=== PATIENT | male | born 1940 | race Caucasian/White ===

== ENCOUNTER 2018-08-13 07:45 | Observation (INO) | payer MEDICARE ==
[~2018-08-13] VITALS: Ht 182.9 cm; Wt 81.9 kg
[2018-08-13] MEDS ORDERED: RIVA20TA PO (08:17)
[2018-08-13] MEDS ORDERED: HYDROmorphone 2 MG/ML, 1ML ONE (08:47)
[2018-08-13 08:58] LABS: BASOPHILS # (AUTO) 0.01 x10^3/uL (0-0.1); BASOPHILS % (AUTO) 0 % (0-1); EOSINOPHILS # (AUTO) 0.05 x10^3/uL (0-0.4); EOSINOPHILS % (AUTO) 1 % (1-7); LYMPHOCYTES # (AUTO) 1.01 x10^3/uL (1-3.4); LYMPHOCYTES % (AUTO) 15 % (22-44); MD NO; MEAN CORPUSCULAR HEMOGLOBIN 31.6 pg (27.5-34.5); MEAN CORPUSCULAR HGB CONC 33.3 g/dL (33.2-36.2); MEAN CORPUSCULAR VOLUME 94.9 fL (81-97); MEAN PLATELET VOLUME 8.5 fL (7.4-10.4); MONOCYTES # (AUTO) 0.41 x10^3/uL (0.2-0.8); MONOCYTES % (AUTO) 6 % (2-9); NEUTROPHILS # (AUTO) 5.26 x10^3/uL (1.8-6.8); NEUTROPHILS % (AUTO) 78 % (42-75); PLATELET COUNT 247 x10^3/uL (130-400); RED BLOOD COUNT 5.27 x10^6/uL (4.38-5.82); RED CELL DISTRIBUTION WIDTH 14.7 % (9.4-14.8)
[2018-08-13] MEDS ORDERED: HYDROmorphone 1 MG/ML, 1ML IM ONE (09:00)
[2018-08-13 09:01] LABS: ALANINE AMINOTRANSFERASE 39 U/L (12-78); ANION GAP 10 mmol/L (5-15); CALCIUM 8.7 mg/dL (8.5-10.1); CHLORIDE 109 mmol/L (98-107); CREATININE 1.13 mg/dL (0.7-1.3)
[2018-08-13 09:03] LABS: ALKALINE PHOSPHATASE 89 U/L (45-117); BILIRUBIN,TOTAL 1.8 mg/dL (0.2-1.0); TOTAL PROTEIN 7.4 g/dL (6.4-8.2)
[2018-08-13] MEDS ORDERED: ASPIRIN 81 MG TABLET CHEW PO ONE (10:00)
[2018-08-13] MEDS ORDERED: SODIUM CHLORIDE FLUSH 10ML SYR IVF ONE (10:00)
[2018-08-13] MEDS ORDERED: ASPIRIN 81 MG TABLET CHEW ONE (10:03)
[2018-08-13] MEDS ORDERED: METO25TA35 PO (10:19)
[2018-08-13] MEDS ORDERED: SODIUM CHLORIDE FLUSH 10ML SYR IVF PRN (11:00)
[2018-08-13 11:11] LABS: CULTURE INDICATED? NO; MICROSCOPIC AUTO
[2018-08-13 11:28] VITALS: BP 159/94
[2018-08-13] MEDS ORDERED: morphine SULFATE 10 MG/ML, 1ML IVPush PRN (11:30)
[2018-08-13] MEDS ORDERED: KETOROLAC 30 MG/1 ML IV PRN (11:30)
[2018-08-13] MEDS ORDERED: ACETAMINOPHEN 325 MG TABLET PO PRN (11:30)
[2018-08-13] MEDS: SODIUM CHLORIDE 0.9% 1,000 ML IV SCH ×2 (12:06→20:08)
[2018-08-13] MEDS: TAMSULOSIN 0.4 MG CAP.ER.24H PO SCH (12:06)
[2018-08-13 12:48] VITALS: BP 150/83
[2018-08-13 12:57] LABS: CHOL/HDL RATIO 2.7; CHOLESTEROL, TOTAL 149 mg/dL (140-239); HDL CHOL % 37 % (26-37); HDL CHOLESTEROL (DIRECT) 55 mg/dL (40-60); LDL CHOLESTEROL,CALCULATED 87 mg/dL (54-169); LDL/HDL RATIO 1.6 (0.5-3.0); TRIGLYCERIDES 35 mg/dL (50-200); TROPONIN I 0.138 ng/mL (0.000-0.045); VLDL CHOLESTEROL 7 mg/dL (0-25)
[2018-08-13 15:17] LABS: TROPONIN I 0.147 ng/mL (0.000-0.045)
[2018-08-13] MEDS ORDERED: RIVAROXABAN 20 MG TABLET PO SCH (17:00)
[2018-08-13 17:31] LABS: TROPONIN I 0.131 ng/mL (0.000-0.045)
[2018-08-13 19:49] VITALS: BP 140/86
[2018-08-13] MEDS: METOPROLOL TARTRATE 25 MG TABLET PO SCH (20:07)
[2018-08-14 02:16] VITALS: BP 109/61
[2018-08-14 05:11] LABS: ANION GAP 7 mmol/L (5-15); CALCIUM 8.3 mg/dL (8.5-10.1); CHLORIDE 110 mmol/L (98-107); CREATININE 0.93 mg/dL (0.7-1.3)
[2018-08-14 06:43] VITALS: BP 139/94
[2018-08-14] MEDS: SODIUM CHLORIDE 0.9% 1,000 ML IV SCH (08:09)
[2018-08-14] MEDS: TAMSULOSIN 0.4 MG CAP.ER.24H PO SCH (08:09)
[2018-08-14] MEDS: METOPROLOL TARTRATE 25 MG TABLET PO SCH (09:21)
[2018-08-14] MEDS ORDERED: REGADENOSON 0.4 MG/5 ML SYRINGE ONE (11:10)
[2018-08-14] MEDS ORDERED: TAMS-11 PO (12:06)
[2018-08-14] MEDS ORDERED: ACET650S21 PO ×2 (12:06)
[2018-08-14 12:50] VITALS: BP 137/94
[2018-08-14] MEDS ORDERED: ACET500T71 PO (13:18)
== END 2018-08-14 14:05 | disposition home or self-care (01) ==
LOC: ED 10:10 → INTOOBSV 11:03 → EDIP 11:03 → 5SO 11:22 → DCLOUNGE 08-14 13:48
PROVIDERS: ADMIT Internal Medicine; ATTEND Internal Medicine
DX: R10.31 Right lower quadrant pain (principal); K80.20 Calculus of gallbladder without cholecystitis without obstruction; N21.0 Calculus in bladder; I10 Essential (primary) hypertension; I24.8 Other forms of acute ischemic heart disease; I48.0 Paroxysmal atrial fibrillation; M41.9 Scoliosis, unspecified; M47.816 Spondylosis without myelopathy or radiculopathy, lumbar region; N13.2 Hydronephrosis with renal and ureteral calculous obstruction; Z79.01 Long term (current) use of anticoagulants; Z87.442 Personal history of urinary calculi
CPT/HCPCS: 36415; 74176; 78452; 80048; 80053; 80061; 81001; 83690; 84484; 85025; 93005; 93017; 96372; 99284; A9502; C9898; G0378; J1170; J2785; J7030